=== PATIENT | female | born 1960 | race Caucasian/White ===

== ENCOUNTER 2017-11-19 17:26 | Emergency (ER) | END 2017-11-19 20:56 | disposition home or self-care (01) ==

== ENCOUNTER 2018-04-21 19:30 | Emergency (ER) | END 2018-04-21 21:34 | disposition home or self-care (01) ==

== ENCOUNTER 2018-04-28 19:05 | Emergency (ER) | END 2018-04-28 22:04 | disposition home or self-care (01) ==